=== PATIENT | male | born 1990 | race American Indian/Alaskan Native ===

== ENCOUNTER 2022-05-14 17:26 | Emergency (ER) | payer OTHER ==
[2022-05-14 17:39] VITALS: BP 140/97
--- NOTE | 2022-05-14 20:56 | Emergency Department Report ---
ED General Adult HPI - General Chief complaint: High BP Stated complaint: HIGH BLOOD PRESSURE Time Seen by Provider: 05/14/22 20:47 Source: patient Mode of arrival: Ambulatory Limitations: No Limitations - History of Present Illness Initial comments: Patient 32-year-old male with history of obesity and hypertension who presents for hypertension today when checking into clinic appointment. Patient states blood pressure was 180/90 at clinic site. Blood pressure is 140s over 80 here in triage today. Patient states he supposed to be on amlodipine p.o. daily however has not had medication in 6 months. Patient denies chest pain there is no headache no dizziness no nausea no vomiting no diaphoresis. Patient alert oriented x3 and in no acute distress. - Related Data Previous Rx's Medication Instructions Recorded Last Taken Type amLODIPine 5 mg PO DAILY #30 tab 05/14/22 Unknown Rx Allergies Allergy/AdvReac Type Severity Reaction Status Date / Time No Known Allergies Allergy Verified 05/14/22 17:39 ED Review of Systems ROS: Stated complaint: HIGH BLOOD PRESSURE Other details as noted in HPI Constitutional: denies: chills, fever Eyes: denies: eye pain, eye discharge, vision change ENT: denies: ear pain, throat pain Respiratory: denies: cough, shortness of breath, wheezing Cardiovascular: denies: chest pain, palpitations, edema Endocrine: no symptoms reported Gastrointestinal: denies: abdominal pain, nausea, diarrhea Genitourinary: denies: urgency, dysuria Musculoskeletal: denies: back pain, joint swelling, arthralgia Skin: denies: rash, lesions Neurological: denies: headache, weakness, paresthesias, vertigo Psychiatric: as per HPI Hematological/Lymphatic: denies: easy bleeding, easy bruising ED Past Medical Hx - Medications Home Medications: Home Medications Medication Instructions Recorded Confirmed Last Taken Type amLODIPine 5 mg PO DAILY #30 tab 05/14/22 Unknown Rx ED Physical Exam - General Limitations: No Limitations General appearance: alert, in no apparent distress - Head Head exam: Present: normocephalic, normal inspection - Eye Eye exam: Present: EOMI Pupils: Present: normal accommodation - ENT ENT exam: Present: mucous membranes moist - Neck Neck exam: Present: normal inspection, full ROM. Absent: tenderness, lymphadenopathy - Respiratory Respiratory exam: Present: normal lung sounds bilaterally. Absent: respiratory distress, wheezes, stridor - Cardiovascular Cardiovascular Exam: Present: regular rate, normal rhythm, normal heart sounds. Absent: systolic murmur, diastolic murmur, rubs, gallop - GI/Abdominal GI/Abdominal exam: Present: soft, normal bowel sounds. Absent: distended, tenderness - Rectal Rectal exam: Present: deferred - Extremities Exam Extremities exam: Present: normal inspection, full ROM, normal capillary refill. Absent: pedal edema - Back Exam Back exam: Present: normal inspection, full ROM. Absent: CVA tenderness (R), CVA tenderness (L) - Neurological Exam Neurological exam: Present: alert, oriented X3, CN II-XII intact, normal gait - Psychiatric Psychiatric exam: Present: normal affect, normal mood - Skin Skin exam: Present: warm, intact, normal color ED Course Vital Signs 05/14/22 17:35 Temperature 97.4 F L Pulse Rate 73 Respiratory 100 H Rate Blood Pressure 140/97 [Left] ED Medical Decision Making - Medical Decision Making Patient 32-year-old male with history of obesity and hypertension who presents for hypertension today when checking into clinic appointment. Patient states blood pressure was 180/90 at clinic site. Blood pressure is 140s over 80 here in triage today. Patient states he supposed to be on amlodipine p.o. daily however has not had medication in 6 months. Patient denies chest pain there is no headache no dizziness no nausea no vomiting no diaphoresis. Patient alert oriented x3 and in no acute distress. Plan, refill amlodipine po, follow up with pcp in 2-3 days, return to emergency if symptoms worsen. pt verbalized agreement and understanding of discharge plan. Patient DC'd home stable condition at this time Critical care attestation.: If time is entered above; I have spent that time in minutes in the direct care of this critically ill patient, excluding procedure time. ED Disposition Clinical Impression: Essential hypertension Disposition: 01 HOME / SELF CARE / HOMELESS Is pt being admited?: No Does the pt Need Aspirin: No Condition: Stable Instructions: Hypertension (ED), DASH Eating Plan, Hypertension, Adult Additional Instructions: Take medication as prescribed, follow-up with your doctor in 2 to 3 days. Return to emergency department should symptoms worsen. Prescriptions: amLODIPine 5 mg PO DAILY #30 tab Referrals: NAEEM DE LEÓN MD [Staff Physician] - 3-5 Days Forms: Work/School Release Form(ED) Time of Disposition: 20:57
== END 2022-05-14 21:15 | disposition home or self-care (01) ==
LOC: ED 17:26
DX: I10 Essential (primary) hypertension (principal)
CPT/HCPCS: 99282